=== PATIENT | female | born 1945 | race Two or more races ===

== ENCOUNTER 2017-09-19 15:49 | Inpatient (IN) | payer MEDICARE, MEDICAID ==
[~2017-09-19] VITALS: Ht 167.6 cm; Wt 63.5 kg
[2017-09-19] MEDS ORDERED: MORPHINE SULFATE INJ 2 MG/ML DISP.SYRIN ONE ×2 (16:21→17:47)
[2017-09-19] MEDS ORDERED: MORPHINE SULFATE INJ 4 MG/ML DISP.SYRIN ONE ×2 (16:22→17:47)
[2017-09-19 16:26] LABS: BASOPHILS # (AUTO) 0.1 /CMM (0.0-0.2); BASOPHILS % (AUTO) 0.8 % (0.0-2.0); EOSINOPHILS # (AUTO) 0.2 /CMM (0.0-0.7); EOSINOPHILS % (AUTO) 2.2 % (0.0-6.0); HEMATOCRIT 34 % (33-45); HEMOGLOBIN 11.8 g/dL (11.5-14.8); LYMPHOCYTES # (AUTO) 1.9 /CMM (0.8-4.8); LYMPHOCYTES % (AUTO) 19.7 % (20.0-44.0); MEAN CORPUSCULAR HEMOGLOBIN 34 PG (26.0-33.0); MEAN CORPUSCULAR HGB CONC 35 g/dl (31.0-36.0); MEAN CORPUSCULAR VOLUME 98 fL (82-100); MONOCYTES # (AUTO) 0.7 /CMM (0.1-1.30); MONOCYTES % (AUTO) 7.4 % (2.0-12.0); NEUTROPHILS # (AUTO) 6.6 /CMM (1.8-8.9); NEUTROPHILS % (AUTO) 69.9 % (43.0-81.0); PLATELET COUNT (AUTO) 385 /CMM (150-450); RDW COEFFICIENT OF VARIATION 13.2 (11.5-15.0); RED BLOOD CELL COUNT(AUTO) 3.52 MIL/uL (4.0-5.2); WHITE BLOOD COUNT (AUTO) 9.5 K/uL (4.3-11.0)
[2017-09-19] MEDS ORDERED: MORPHINE SULFATE INJ 2 MG/ML DISP.SYRIN IM ONE (16:30)
[2017-09-19 16:38] LABS: CALCIUM, SERUM 9.1 mg/dL (8.5-10.1); CARBON DIOXIDE 29 mmol/L (21-32); CHLORIDE 102 mmol/L (98-107); CREATININE 1.1 mg/dL (0.6-1.3); GLUCOSE 106 mg/dL (74-106); POTASSIUM 4.4 mmol/L (3.5-5.1); SODIUM SERUM 138 mmol/L (136-145); UREA NITROGEN, BLOOD 19 mg/dL (7-18)
[2017-09-19 16:42] LABS: INR 1.06 (0.85-1.15)
[2017-09-19 16:43] LABS: ALANINE AMINOTRANSFERASE 17 U/L (12-78); ALBUMIN 3.1 g/dL (3.4-5.0); ALKALINE PHOSPHATASE 89 U/L (46-116); ASPARTATE AMINOTRANSFERASE 24 U/L (15-37); BILIRUBIN,DIRECT 0.2 mg/dL (0.0-0.2); BILIRUBIN,TOTAL 0.4 mg/dL (0.2-1.0); TOTAL PROTEIN, SERUM 6.7 g/dL (6.4-8.2)
[2017-09-19] MEDS ORDERED: ASPI-1169 PO (17:28)
[2017-09-19] MEDS ORDERED: DOCU-141 PO (17:28)
[2017-09-19] MEDS ORDERED: CALC-1026 PO (17:28)
[2017-09-19] MEDS ORDERED: METH2.5T PO (17:28)
[2017-09-19] MEDS ORDERED: OMEG-130 PO (17:28)
[2017-09-19] MEDS ORDERED: UBID100C13 PO (17:28)
[2017-09-19] MEDS ORDERED: CHOL100044 PO (17:28)
[2017-09-19] MEDS ORDERED: ATOR40TA PO (17:28)
[2017-09-19] MEDS ORDERED: METO25TA3 PO (17:28)
[2017-09-19] MEDS ORDERED: MORPHINE SULFATE INJ 2 MG/ML DISP.SYRIN IV ONE (18:00)
[2017-09-19 18:30] VITALS: BP 148/81
[2017-09-19] MEDS ORDERED: ENOXAPARIN SODIUM 40 MG/0.4 ML DISP.SYRIN SQ SCH (19:30)
[2017-09-19] MEDS ORDERED: IV NS 0.9% 1,000 ML IV PRN (19:30)
[2017-09-19] MEDS ORDERED: Z GUARD REMEDY 2 OZ OINT TP PRN (19:30)
[2017-09-19] MEDS ORDERED: ZOLPIDEM TARTRATE 5 MG TABLET PO PRN (19:30)
[2017-09-19] MEDS ORDERED: ONDANSETRON HCL/PF 4 MG/2 ML VIAL IVP PRN (19:30)
[2017-09-19] MEDS ORDERED: ACETAMINOPHEN 325 MG TABLET PO PRN (19:30)
[2017-09-19 20:00] VITALS: BP 168/74
[2017-09-19] MEDS ORDERED: ENOXAPARIN SODIUM 40 MG/0.4 ML DISP.SYRIN SQ ONE (20:13)
[2017-09-19] MEDS: MORPHINE SULFATE INJ 2 MG/ML DISP.SYRIN IV PRN (20:25)
[2017-09-20] MEDS: MORPHINE SULFATE INJ 2 MG/ML DISP.SYRIN IV PRN ×3 (01:11→13:10)
[2017-09-20] MEDS: HYDROCODONE/APAP 5/325MG 1 EACH TABLET PO PRN ×2 (05:15→10:08)
[2017-09-20 06:37] LABS: BASOPHILS % (AUTO) 0.3 % (0.0-2.0); EOSINOPHILS % (AUTO) 0.1 % (0.0-6.0); HEMATOCRIT 32 % (33-45); HEMOGLOBIN 10.9 g/dL (11.5-14.8); LYMPHOCYTES # (AUTO) 1.6 /CMM (0.8-4.8); MEAN CORPUSCULAR HEMOGLOBIN 34 PG (26.0-33.0); MEAN CORPUSCULAR HGB CONC 34 g/dl (31.0-36.0); MEAN CORPUSCULAR VOLUME 100 fL (82-100); NEUTROPHILS # (AUTO) 9.5 /CMM (1.8-8.9); NEUTROPHILS % (AUTO) 78.6 % (43.0-81.0); PLATELET COUNT (AUTO) 335 /CMM (150-450); RDW COEFFICIENT OF VARIATION 14.2 (11.5-15.0); RED BLOOD CELL COUNT(AUTO) 3.25 MIL/uL (4.0-5.2); WHITE BLOOD COUNT (AUTO) 12.1 K/uL (4.3-11.0)
[2017-09-20 07:07] LABS: CALCIUM, SERUM 8.3 mg/dL (8.5-10.1); CARBON DIOXIDE 27 mmol/L (21-32); CHLORIDE 101 mmol/L (98-107); CREATININE 0.9 mg/dL (0.6-1.3); GLUCOSE 101 mg/dL (74-106); MAGNESIUM 1.8 mg/dL (1.8-2.4); PHOSPHORUS 4.2 mg/dL (2.5-4.9); POTASSIUM 3.9 mmol/L (3.5-5.1); SODIUM SERUM 139 mmol/L (136-145); UREA NITROGEN, BLOOD 16 mg/dL (7-18)
[2017-09-20 07:09] LABS: CHOLESTEROL 123 mg/dL (<200); HDL CHOLESTEROL 63 mg/dL (40-60); LDL 55 mg/dL (0-99); TRIGLYCERIDES 48 mg/dL (30-150)
[2017-09-20 08:00] VITALS: BP 141/75
[2017-09-20 16:00] VITALS: BP 142/80
[2017-09-20] MEDS: MORPHINE SULFATE INJ 4 MG/ML DISP.SYRIN IV PRN (18:02)
[2017-09-20 20:00] VITALS: BP 155/81
[2017-09-20] MEDS ORDERED: ENOXAPARIN SODIUM 40 MG/0.4 ML DISP.SYRIN SQ SCH (21:00)
[2017-09-21] VITALS (13 sets, daily range): BP systolic 130–165; BP diastolic 80–91
[2017-09-21] MEDS: MORPHINE SULFATE INJ 4 MG/ML DISP.SYRIN IV PRN ×6 (01:33→21:43)
[2017-09-21 07:17] LABS: ALANINE AMINOTRANSFERASE 16 U/L (12-78); ALBUMIN 2.5 g/dL (3.4-5.0); ALKALINE PHOSPHATASE 77 U/L (46-116); ASPARTATE AMINOTRANSFERASE 20 U/L (15-37); BILIRUBIN,TOTAL 0.6 mg/dL (0.2-1.0); CARBON DIOXIDE 26 mmol/L (21-32); CHLORIDE 101 mmol/L (98-107); CREATININE 0.8 mg/dL (0.6-1.3); GLUCOSE 92 mg/dL (74-106); MAGNESIUM 1.7 mg/dL (1.8-2.4); PHOSPHORUS 3.8 mg/dL (2.5-4.9); SODIUM SERUM 135 mmol/L (136-145); TOTAL PROTEIN, SERUM 5.9 g/dL (6.4-8.2); UREA NITROGEN, BLOOD 16 mg/dL (7-18)
[2017-09-21 07:21] LABS: BASOPHILS # (AUTO) 0.1 /CMM (0.0-0.2); BASOPHILS % (AUTO) 0.6 % (0.0-2.0); EOSINOPHILS # (AUTO) 0.1 /CMM (0.0-0.7); HEMATOCRIT 32 % (33-45); HEMOGLOBIN 10.9 g/dL (11.5-14.8); LYMPHOCYTES # (AUTO) 1.7 /CMM (0.8-4.8); LYMPHOCYTES % (AUTO) 13.7 % (20.0-44.0); MEAN CORPUSCULAR HEMOGLOBIN 34 PG (26.0-33.0); MEAN CORPUSCULAR HGB CONC 34 g/dl (31.0-36.0); MEAN CORPUSCULAR VOLUME 99 fL (82-100); MONOCYTES # (AUTO) 1.3 /CMM (0.1-1.30); MONOCYTES % (AUTO) 10.3 % (2.0-12.0); NEUTROPHILS # (AUTO) 9.2 /CMM (1.8-8.9); NEUTROPHILS % (AUTO) 74.4 % (43.0-81.0); PLATELET COUNT (AUTO) 292 /CMM (150-450); RDW COEFFICIENT OF VARIATION 14.2 (11.5-15.0); RED BLOOD CELL COUNT(AUTO) 3.22 MIL/uL (4.0-5.2); WHITE BLOOD COUNT (AUTO) 12.3 K/uL (4.3-11.0)
[2017-09-21 10:41] LABS: IRON, SERUM 13 ug/dl (50-175); TOTAL IRON BINDING CAPACITY 178 ug/dl (250-450)
[2017-09-21 10:55] LABS: FERRITIN 200 ng/mL (8-388)
[2017-09-21] MEDS ORDERED: BACITRACIN 50000 UNITS/VIAL ONE (11:23)
[2017-09-21] MEDS ORDERED: CLINDAMYCIN 900 MG/6 ML VIAL ONE (11:27)
[2017-09-21] MEDS ORDERED: FENTANYL PF 100MCG/2ML AMPUL ONE (11:27)
[2017-09-21] MEDS ORDERED: BISACODYL SUPP (10 MG) 10 MG/SUPP.RECT SUPP.RECT RC PRN (13:30)
[2017-09-21] MEDS ORDERED: HYDROCODONE/APAP 5/325MG 1 EACH TABLET PO PRN (13:30)
[2017-09-21] MEDS ORDERED: SENNOSIDES 8.6 MG TABLET PO PRN (13:30)
[2017-09-21] MEDS ORDERED: IV LR 1000 ML 1,000 ML IV PRN (13:30)
[2017-09-21] MEDS ORDERED: ONDANSETRON HCL/PF 4 MG/2 ML VIAL IV PRN (13:30)
[2017-09-21] MEDS ORDERED: DOCUSATE SODIUM 250 MG CAPSULE PO PRN (13:30)
[2017-09-21] MEDS: Magnesium 1GM/D5W 100ML PREMIX 100 ML IV SCH ×2 (13:46→14:52)
[2017-09-21] MEDS ORDERED: LEVOFLOXACIN 500 MG /D5W 100ML 500 MG in PREMIX 1 EA IV ONE (15:00)
[2017-09-21] MEDS: CLINDAMYCIN 600 MG in IV D5W 50 ML IV SCH ×2 (18:33→23:28)
[2017-09-21] MEDS: ATORVASTATIN 40 MG TABLET PO SCH (21:43)
[2017-09-21] MEDS: ZOLPIDEM TARTRATE 5 MG TABLET PO PRN (22:54)
[2017-09-22] MEDS: CLINDAMYCIN 600 MG in IV D5W 50 ML IV SCH (05:55)
[2017-09-22 07:18] LABS: HEMATOCRIT 27 % (33-45); HEMOGLOBIN 9.1 g/dL (11.5-14.8); LYMPHOCYTES # (AUTO) 0.8 /CMM (0.8-4.8); LYMPHOCYTES % (AUTO) 5.2 % (20.0-44.0); MEAN CORPUSCULAR HEMOGLOBIN 33 PG (26.0-33.0); MEAN CORPUSCULAR HGB CONC 33 g/dl (31.0-36.0); MEAN CORPUSCULAR VOLUME 99 fL (82-100); MONOCYTES # (AUTO) 1.5 /CMM (0.1-1.30); MONOCYTES % (AUTO) 10.3 % (2.0-12.0); NEUTROPHILS # (AUTO) 12.4 /CMM (1.8-8.9); NEUTROPHILS % (AUTO) 84.5 % (43.0-81.0); PLATELET COUNT (AUTO) 248 /CMM (150-450); RDW COEFFICIENT OF VARIATION 14.1 (11.5-15.0); RED BLOOD CELL COUNT(AUTO) 2.76 MIL/uL (4.0-5.2); WHITE BLOOD COUNT (AUTO) 14.7 K/uL (4.3-11.0)
[2017-09-22 07:23] LABS: ALANINE AMINOTRANSFERASE 17 U/L (12-78); ALBUMIN 2.3 g/dL (3.4-5.0); ALKALINE PHOSPHATASE 69 U/L (46-116); ASPARTATE AMINOTRANSFERASE 20 U/L (15-37); BILIRUBIN,TOTAL 0.5 mg/dL (0.2-1.0); CALCIUM, SERUM 7.6 mg/dL (8.5-10.1); CARBON DIOXIDE 25 mmol/L (21-32); CHLORIDE 99 mmol/L (98-107); GLUCOSE 124 mg/dL (74-106); MAGNESIUM 2.1 mg/dL (1.8-2.4); PHOSPHORUS 3.9 mg/dL (2.5-4.9); POTASSIUM 4.2 mmol/L (3.5-5.1); SODIUM SERUM 134 mmol/L (136-145); TOTAL PROTEIN, SERUM 5.5 g/dL (6.4-8.2); UREA NITROGEN, BLOOD 18 mg/dL (7-18)
[2017-09-22 08:00] VITALS: BP 112/54
[2017-09-22] MEDS: CALCIUM CARBONATE (1250) 500 MG TABLET PO SCH (08:53)
[2017-09-22] MEDS: CHOLECALCIFEROL 1,000 UNIT TABLET (VIT D3) PO SCH (08:53)
[2017-09-22] MEDS: DOCUSATE SODIUM 100 MG CAPSULE PO SCH (08:53)
[2017-09-22] MEDS: MORPHINE SULFATE INJ 4 MG/ML DISP.SYRIN IV PRN ×2 (08:54→20:35)
[2017-09-22] MEDS: METOPROLOL SUCCINATE 25 MG TAB.SR.24H PO SCH (08:54)
[2017-09-22] MEDS ORDERED: ASPIRIN 81 MG TAB.CHEW PO SCH (09:00)
[2017-09-22 09:30] VITALS: BP_SYST 107; BP_SYST 121; BP_SYST 136; BP_DIAS 62; BP_DIAS 74; BP_DIAS 88
[2017-09-22] MEDS: IV NS 0.9% 1,000 ML IV PRN ×3 (09:48→21:32)
[2017-09-22] MEDS: RIVAROXABAN 10 MG TABLET PO SCH (09:55)
[2017-09-22] MEDS: ACETAMINOPHEN 325 MG TABLET PO PRN (11:32)
[2017-09-22] MEDS ORDERED: POLYETHYLENE GLYCOL 3350 17 GM POWD.PACK PO PRN (12:30)
[2017-09-22] MEDS: PANTOPRAZOLE 40 MG VIAL IV SCH (12:53)
[2017-09-22] MEDS: SOD FERRIC GLUC 125 MG in IV NS 0.9% 100 ML IV SCH (15:02)
[2017-09-22 16:00] VITALS: BP 127/60
[2017-09-22 20:00] VITALS: BP 141/66
[2017-09-22] MEDS: ZOLPIDEM TARTRATE 5 MG TABLET PO PRN (21:31)
[2017-09-22] MEDS: ATORVASTATIN 40 MG TABLET PO SCH (21:31)
[2017-09-23] MEDS: MORPHINE SULFATE INJ 4 MG/ML DISP.SYRIN IV PRN ×5 (01:50→20:16)
[2017-09-23 06:42] LABS: BASOPHILS % (AUTO) 0.2 % (0.0-2.0); CALCIUM, SERUM 7.4 mg/dL (8.5-10.1); CARBON DIOXIDE 25 mmol/L (21-32); CHLORIDE 104 mmol/L (98-107); CREATININE 0.9 mg/dL (0.6-1.3); EOSINOPHILS # (AUTO) 0.2 /CMM (0.0-0.7); EOSINOPHILS % (AUTO) 0.9 % (0.0-6.0); GLUCOSE 92 mg/dL (74-106); HEMATOCRIT 27 % (33-45); LYMPHOCYTES # (AUTO) 1.6 /CMM (0.8-4.8); LYMPHOCYTES % (AUTO) 8.1 % (20.0-44.0); MEAN CORPUSCULAR HEMOGLOBIN 33 PG (26.0-33.0); MEAN CORPUSCULAR HGB CONC 33 g/dl (31.0-36.0); MEAN CORPUSCULAR VOLUME 99 fL (82-100); MONOCYTES # (AUTO) 2.1 /CMM (0.1-1.30); MONOCYTES % (AUTO) 10.5 % (2.0-12.0); NEUTROPHILS # (AUTO) 15.7 /CMM (1.8-8.9); NEUTROPHILS % (AUTO) 80.3 % (43.0-81.0); PLATELET COUNT (AUTO) 303 /CMM (150-450); POTASSIUM 4.3 mmol/L (3.5-5.1); RED BLOOD CELL COUNT(AUTO) 2.72 MIL/uL (4.0-5.2); SODIUM SERUM 137 mmol/L (136-145); UREA NITROGEN, BLOOD 20 mg/dL (7-18); WHITE BLOOD COUNT (AUTO) 19.5 K/uL (4.3-11.0)
[2017-09-23] MEDS: LEVOTHYROXINE SODIUM 75 MCG TABLET PO SCH (07:30)
[2017-09-23 08:00] VITALS: BP 151/75
[2017-09-23] MEDS: DOCUSATE SODIUM 100 MG CAPSULE PO SCH (09:00)
[2017-09-23] MEDS ORDERED: BISACODYL SUPP (10 MG) 10 MG/SUPP.RECT SUPP.RECT RC ONE (09:00)
[2017-09-23] MEDS ORDERED: METHOTREXATE SODIUM (2.5MG) 2.5 MG TABLET PO SCH (09:00)
[2017-09-23 09:33] LABS: BAND % (MANUAL) 1 % (0.0-5.0); EOSINOPHILS % (MANUAL) 1 % (0-4); LYMPHOCYTES % (MANUAL) 4 % (16-48); MONOCYTES % (MANUAL) 5 % (0-11.0); NEUTROPHILS % (MANUAL) 89 (42-76)
[2017-09-23] MEDS: METOPROLOL SUCCINATE 25 MG TAB.SR.24H PO SCH (11:11)
[2017-09-23] MEDS: CHOLECALCIFEROL 1,000 UNIT TABLET (VIT D3) PO SCH (11:11)
[2017-09-23] MEDS: CALCIUM CARBONATE (1250) 500 MG TABLET PO SCH (11:11)
[2017-09-23] MEDS: ACETAMINOPHEN 325 MG TABLET PO PRN (11:17)
[2017-09-23] MEDS: PANTOPRAZOLE 40 MG VIAL IV SCH (13:20)
[2017-09-23] MEDS: SOD FERRIC GLUC 125 MG in IV NS 0.9% 100 ML IV SCH (14:21)
[2017-09-23 16:00] VITALS: BP 127/67
[2017-09-23 16:06] LABS: APPEARANCE,URINE SL CLOUDY (CLEAR); BILIRUBIN,URINE NEGATIVE (NEGATIVE); BLOOD, URINE 3+ Ery/uL (NEGATIVE); COLOR,URINE YELLOW (YELLOW); KETONES,URINE NEGATIVE (NEGATIVE); LEUKOCYTE ESTERASE ,URINE NEGATIVE (NEGATIVE); NITRITE, URINE NEGATIVE (NEGATIVE); PROTEIN,URINE NEGATIVE (NEGATIVE); UGLUCOSE NEGATIVE (NEGATIVE); UROBILINOGEN,URINE 0.2 EU/dL (0.2)
[2017-09-23 16:37] LABS: BACTERIA,URINE None seen /HPF (None Seen); SQUAMOUS EPITHELIAL CELL,UR Few /HPF (None Seen)
[2017-09-23] MEDS: RIVAROXABAN 10 MG TABLET PO SCH (17:16)
[2017-09-23 20:00] VITALS: BP 107/63
[2017-09-23] MEDS: ATORVASTATIN 40 MG TABLET PO SCH (21:53)
[2017-09-23] MEDS: ZOLPIDEM TARTRATE 5 MG TABLET PO PRN (21:53)
[2017-09-24 01:19] LABS: OCCULT BLOOD STOOL POSITIVE (NEGATIVE)
[2017-09-24 06:30] LABS: BASOPHILS # (AUTO) 0.1 /CMM (0.0-0.2); BASOPHILS % (AUTO) 0.4 % (0.0-2.0); EOSINOPHILS # (AUTO) 0.3 /CMM (0.0-0.7); EOSINOPHILS % (AUTO) 1.9 % (0.0-6.0); HEMATOCRIT 25 % (33-45); HEMOGLOBIN 8.4 g/dL (11.5-14.8); LYMPHOCYTES # (AUTO) 1.3 /CMM (0.8-4.8); LYMPHOCYTES % (AUTO) 8.5 % (20.0-44.0); MEAN CORPUSCULAR HEMOGLOBIN 33 PG (26.0-33.0); MEAN CORPUSCULAR HGB CONC 34 g/dl (31.0-36.0); MEAN CORPUSCULAR VOLUME 99 fL (82-100); MONOCYTES # (AUTO) 1.4 /CMM (0.1-1.30); NEUTROPHILS # (AUTO) 12.6 /CMM (1.8-8.9); NEUTROPHILS % (AUTO) 80.2 % (43.0-81.0); PLATELET COUNT (AUTO) 355 /CMM (150-450); RDW COEFFICIENT OF VARIATION 14.3 (11.5-15.0); RED BLOOD CELL COUNT(AUTO) 2.55 MIL/uL (4.0-5.2); WHITE BLOOD COUNT (AUTO) 15.8 K/uL (4.3-11.0)
[2017-09-24 06:41] LABS: CALCIUM, SERUM 7.4 mg/dL (8.5-10.1); CARBON DIOXIDE 24 mmol/L (21-32); CHLORIDE 104 mmol/L (98-107); CREATININE 0.8 mg/dL (0.6-1.3); GLUCOSE 100 mg/dL (74-106); POTASSIUM 4.3 mmol/L (3.5-5.1); SODIUM SERUM 138 mmol/L (136-145); UREA NITROGEN, BLOOD 20 mg/dL (7-18)
[2017-09-24] MEDS ORDERED: MORPHINE SULFATE INJ 4 MG/ML DISP.SYRIN ONE (06:59)
[2017-09-24] MEDS: MORPHINE SULFATE INJ 4 MG/ML DISP.SYRIN IV PRN ×3 (07:01→14:38)
[2017-09-24 08:00] VITALS: BP 143/76
[2017-09-24] MEDS: PANTOPRAZOLE 40 MG VIAL IV SCH ×2 (08:34→16:34)
[2017-09-24] MEDS: CHOLECALCIFEROL 1,000 UNIT TABLET (VIT D3) PO SCH (08:35)
[2017-09-24] MEDS: CALCIUM CARBONATE (1250) 500 MG TABLET PO SCH (08:35)
[2017-09-24] MEDS: METOPROLOL SUCCINATE 25 MG TAB.SR.24H PO SCH (08:35)
[2017-09-24] MEDS: DOCUSATE SODIUM 100 MG CAPSULE PO SCH (08:37)
[2017-09-24] MEDS: LEVOTHYROXINE SODIUM 75 MCG TABLET PO SCH (08:40)
[2017-09-24] MEDS: predniSONE 20 MG TABLET PO SCH (10:12)
[2017-09-24] MEDS: HYDROCODONE/APAP 5/325MG 1 EACH TABLET PO PRN ×2 (11:42→17:58)
[2017-09-24] MEDS: SOD FERRIC GLUC 125 MG in IV NS 0.9% 100 ML IV SCH (14:12)
[2017-09-24 16:00] VITALS: BP 142/60
[2017-09-24] MEDS: RIVAROXABAN 10 MG TABLET PO SCH (16:34)
[2017-09-24 20:00] VITALS: BP 111/65
[2017-09-24] MEDS: ZOLPIDEM TARTRATE 5 MG TABLET PO PRN (20:54)
[2017-09-24] MEDS: ATORVASTATIN 40 MG TABLET PO SCH (21:01)
[2017-09-25] MEDS: LEVOTHYROXINE SODIUM 75 MCG TABLET PO SCH (07:57)
[2017-09-25 08:00] VITALS: BP 126/68
[2017-09-25] MEDS: PANTOPRAZOLE 40 MG VIAL IV SCH ×2 (08:16→17:10)
[2017-09-25] MEDS: CHOLECALCIFEROL 1,000 UNIT TABLET (VIT D3) PO SCH (08:16)
[2017-09-25] MEDS: predniSONE 20 MG TABLET PO SCH (08:16)
[2017-09-25] MEDS: CALCIUM CARBONATE (1250) 500 MG TABLET PO SCH (08:16)
[2017-09-25] MEDS: METOPROLOL SUCCINATE 25 MG TAB.SR.24H PO SCH (08:16)
[2017-09-25] MEDS: DOCUSATE SODIUM 100 MG CAPSULE PO SCH (08:17)
[2017-09-25] MEDS: MORPHINE SULFATE INJ 4 MG/ML DISP.SYRIN IV PRN (11:15)
[2017-09-25] MEDS ORDERED: IV NS 0.9% 1,000 ML BAG IV ONE (12:30)
[2017-09-25 12:34] LABS: HEMATOCRIT 26 % (33-45); HEMOGLOBIN 8.6 g/dL (11.5-14.8); LYMPHOCYTES # (AUTO) 0.6 /CMM (0.8-4.8); LYMPHOCYTES % (AUTO) 2.7 % (20.0-44.0); MEAN CORPUSCULAR HEMOGLOBIN 33 PG (26.0-33.0); MEAN CORPUSCULAR HGB CONC 34 g/dl (31.0-36.0); MEAN CORPUSCULAR VOLUME 98 fL (82-100); MONOCYTES # (AUTO) 0.2 /CMM (0.1-1.30); MONOCYTES % (AUTO) 1.1 % (2.0-12.0); NEUTROPHILS # (AUTO) 20.5 /CMM (1.8-8.9); NEUTROPHILS % (AUTO) 96.2 % (43.0-81.0); PLATELET COUNT (AUTO) 457 /CMM (150-450); RDW COEFFICIENT OF VARIATION 14.1 (11.5-15.0); RED BLOOD CELL COUNT(AUTO) 2.61 MIL/uL (4.0-5.2); WHITE BLOOD COUNT (AUTO) 21.4 K/uL (4.3-11.0)
[2017-09-25] MEDS ORDERED: RIVA10TA PO (13:49)
[2017-09-25] MEDS ORDERED: PRED20TA PO (13:49)
[2017-09-25] MEDS ORDERED: PANT40TA2 PO (13:49)
[2017-09-25] MEDS ORDERED: METH2.5T14 PO (13:49)
[2017-09-25] MEDS ORDERED: POLY17PO4 PO (13:49)
[2017-09-25] MEDS ORDERED: HYDR-3972 PO (13:49)
[2017-09-25] MEDS ORDERED: SENN-167 PO (13:49)
[2017-09-25] MEDS: SOD FERRIC GLUC 125 MG in IV NS 0.9% 100 ML IV SCH (15:14)
[2017-09-25 16:00] VITALS: BP 148/77
[2017-09-25] MEDS: RIVAROXABAN 10 MG TABLET PO SCH (17:10)
[2017-09-25 19:58] VITALS: BP 130/81
[2017-09-25 19:59] VITALS: BP 130/81
[2017-09-25] MEDS: ATORVASTATIN 40 MG TABLET PO SCH (21:33)
[2017-09-25] MEDS: ZOLPIDEM TARTRATE 5 MG TABLET PO PRN (21:33)
[2017-09-25] MEDS: HYDROCODONE/APAP 5/325MG 1 EACH TABLET PO PRN (21:39)
[2017-09-26] MEDS: LEVOTHYROXINE SODIUM 75 MCG TABLET PO SCH (07:41)
[2017-09-26 08:00] VITALS: BP 136/87
[2017-09-26] MEDS: PANTOPRAZOLE 40 MG VIAL IV SCH ×2 (08:14→17:03)
[2017-09-26] MEDS: predniSONE 20 MG TABLET PO SCH (08:15)
[2017-09-26] MEDS: DOCUSATE SODIUM 100 MG CAPSULE PO SCH (08:15)
[2017-09-26] MEDS: CALCIUM CARBONATE (1250) 500 MG TABLET PO SCH (08:15)
[2017-09-26] MEDS: CHOLECALCIFEROL 1,000 UNIT TABLET (VIT D3) PO SCH (08:16)
[2017-09-26] MEDS: METOPROLOL SUCCINATE 25 MG TAB.SR.24H PO SCH (08:16)
[2017-09-26 14:00] VITALS: BP 148/50
[2017-09-26] MEDS: HYDROCODONE/APAP 5/325MG 1 EACH TABLET PO PRN ×2 (14:38→21:48)
[2017-09-26] MEDS ORDERED: IV NS 0.9% 250 ML IV ONE (15:00)
[2017-09-26] MEDS: SOD FERRIC GLUC 125 MG in IV NS 0.9% 100 ML IV SCH (15:48)
[2017-09-26] MEDS: RIVAROXABAN 10 MG TABLET PO SCH (17:09)
[2017-09-26] MEDS: MORPHINE SULFATE INJ 4 MG/ML DISP.SYRIN IV PRN (18:21)
[2017-09-26 18:45] VITALS: BP 146/76
[2017-09-26 20:00] VITALS: BP 153/84
[2017-09-26] MEDS: ZOLPIDEM TARTRATE 5 MG TABLET PO PRN (21:30)
[2017-09-26] MEDS: ATORVASTATIN 40 MG TABLET PO SCH (21:30)
[2017-09-27 08:00] VITALS: BP 157/89
[2017-09-27] MEDS: PANTOPRAZOLE 40 MG VIAL IV SCH ×2 (08:19→16:16)
[2017-09-27] MEDS: LEVOTHYROXINE SODIUM 75 MCG TABLET PO SCH (08:19)
[2017-09-27] MEDS: predniSONE 20 MG TABLET PO SCH (08:20)
[2017-09-27] MEDS: CHOLECALCIFEROL 1,000 UNIT TABLET (VIT D3) PO SCH (08:20)
[2017-09-27] MEDS: CALCIUM CARBONATE (1250) 500 MG TABLET PO SCH (08:20)
[2017-09-27] MEDS: METOPROLOL SUCCINATE 25 MG TAB.SR.24H PO SCH (08:21)
[2017-09-27] MEDS: DOCUSATE SODIUM 100 MG CAPSULE PO SCH (08:21)
[2017-09-27] MEDS: HYDROCODONE/APAP 5/325MG 1 EACH TABLET PO PRN (14:32)
[2017-09-27 15:31] VITALS: BP_SYST 137; BP_SYST 151; BP_SYST 152; BP_DIAS 83; BP_DIAS 84; BP_DIAS 86
[2017-09-27 16:00] VITALS: BP_SYST 152; BP_SYST 157; BP_DIAS 89; BP_DIAS 92
[2017-09-27] MEDS: RIVAROXABAN 10 MG TABLET PO SCH (16:16)
[2017-09-27 20:00] VITALS: BP 141/79
[2017-09-27] MEDS: ZOLPIDEM TARTRATE 5 MG TABLET PO PRN (21:10)
[2017-09-27] MEDS: ATORVASTATIN 40 MG TABLET PO SCH (21:10)
[2017-09-27] MEDS: ACETAMINOPHEN 325 MG TABLET PO PRN (21:28)
[2017-09-28] MEDS: PANTOPRAZOLE 40 MG VIAL IV SCH ×2 (07:59→16:11)
[2017-09-28 08:00] VITALS: BP 152/84
[2017-09-28] MEDS: LEVOTHYROXINE SODIUM 75 MCG TABLET PO SCH (08:00)
[2017-09-28] MEDS: predniSONE 20 MG TABLET PO SCH (08:01)
[2017-09-28] MEDS: DOCUSATE SODIUM 100 MG CAPSULE PO SCH (08:01)
[2017-09-28] MEDS: CHOLECALCIFEROL 1,000 UNIT TABLET (VIT D3) PO SCH (08:01)
[2017-09-28] MEDS: METOPROLOL SUCCINATE 25 MG TAB.SR.24H PO SCH (08:01)
[2017-09-28] MEDS: CALCIUM CARBONATE (1250) 500 MG TABLET PO SCH (08:01)
[2017-09-28 11:57] VITALS: BP_SYST 125; BP_SYST 137; BP_SYST 151; BP_DIAS 81; BP_DIAS 84
[2017-09-28] MEDS: RIVAROXABAN 10 MG TABLET PO SCH (16:12)
== END 2017-09-28 18:05 | DRG 481 ==
LOC: ER 15:52 → MEDSG2 18:14
PROVIDERS: ADMIT Nurse Practitioner Acute Care; ATTEND Nurse Practitioner Acute Care
PROC: 0QS606Z Reposition Right Upper Femur with Intramedullary Internal Fixation Device, Open Approach (ICD-10-PCS; principal; 2017-09-21 11:00)
PROC: 0DB68ZX Excision of Stomach, Via Natural or Artificial Opening Endoscopic, Diagnostic (ICD-10-PCS; 2017-09-23)
DX: S72.141A Displaced intertrochanteric fracture of right femur, initial encounter for closed fracture (principal); N17.9 Acute kidney failure, unspecified; E44.0 Moderate protein-calorie malnutrition; D68.69 Other thrombophilia; E88.09 Other disorders of plasma-protein metabolism, not elsewhere classified; K92.2 Gastrointestinal hemorrhage, unspecified; D62 Acute posthemorrhagic anemia; W01.0XXA Fall on same level from slipping, tripping and stumbling without subsequent striking against object, initial encounter; Y92.009 Unspecified place in unspecified non-institutional (private) residence as the place of occurrence of the external cause; E03.9 Hypothyroidism, unspecified; I10 Essential (primary) hypertension; D50.9 Iron deficiency anemia, unspecified; I25.10 Atherosclerotic heart disease of native coronary artery without angina pectoris; I95.1 Orthostatic hypotension; M06.9 Rheumatoid arthritis, unspecified; D72.829 Elevated white blood cell count, unspecified; T38.0X5A Adverse effect of glucocorticoids and synthetic analogues, initial encounter; R19.5 Other fecal abnormalities; Z68.22 Body mass index [BMI] 22.0-22.9, adult; K29.00 Acute gastritis without bleeding
CPT/HCPCS: 36415; 71045-TC; 73501; 73502; 73552; 80048-TC; 80053-TC; 80061-TC; 80076-TC; 81000-TC; 82272-TC; 82533; 82728-TC; 83540-TC; 83605-TC; 83735-TC; 84100-TC; 85025-TC; 85730-TC; 86850-TC; 86921-TC; 87040-TC; 87081-TC; 87086-TC; 88305-TC; 88313-TC; 88342; 93307-TC; 97110-TC; 97116-TC; 97530-TC; A4216; A4606; A6402; C9113; J1650; J1956; J2270; J2916; J3010; J3475; J3490; J7030; J7040; J7050; J7060; J7120; J8610; Z7610